=== PATIENT | female | born 1995 | race Caucasian/White ===

== ENCOUNTER 2018-01-17 21:39 | Emergency (ER) | payer OTHER ==
[2018-01-17 22:20] LABS: #Eosinphils 0.1 thou/uL (0.0-0.7); #Lymphocytes 1.8 thou/uL (1.20-3.40); #Monocytes 0.6 thou/uL (0.11-0.59); #Neutrophils 4.4 thou/uL (1.40-6.50); %Basophils 0.1 % (0.0-1.0); %Lymphocytes 26.2 % (21.0-51.0); %Neutrophils 63.8 % (42.0-75.0); Hemoglobin 11.9 g/dL (12.0-16.0); Mean Corpuscular HGB CONC 35.9 g/dL (32.0-36.0); Mean Corpuscular Hemoglobin 30.3 pg (27.0-31.0); Mean Corpuscular Volume 84.5 fL (78.0-98.0); Mean Platelet Volume 6.6 fL (7.4-10.4); Platelet Count 219 thou/uL (130-400); RBC Distribution Width 12.7 % (11.5-14.5); Red Blood Cell (RBC) Count 3.92 mill/uL (4.20-5.40); White Blood Cell (WBC) Count 6.9 thou/uL (4.8-10.8)
[2018-01-17 22:33] LABS: Pregnancy Test - Urine (BHCG) POSITIVE (Negative); Pregu Control Background? CLEAR/WHITE (CLR/WHITE); Pregu Control Bar Appear? YES (CONTROL BAR); Specific Gravity 1.016 (1.002-1.036)
[2018-01-17 22:40] LABS: Bilirubin Negative (Negative); Blood, Urine Negative (Negative); Clarity CLEAR (Clear); Glucose, Urine (Dipstick) Negative (Negative); Leukocyte Negative (Negative); Nitrite Negative (Negative); Protein, Urine (Dipstick) Negative (Neg-Trace); pH, Urine 6.5 (5.0-9.0)
[2018-01-17 22:42] LABS: Specific Gravity, Urine 1.016 (1.002-1.036)
[2018-01-17 22:44] LABS: ALT (SGPT) Less than 7 U/L (8-55); AST (SGOT) 12 U/L (5-34); Albumin 3.7 g/dL (3.5-5.0); Alkaline Phosphatase 43 U/L (40-150); Anion Gap 12 mmol/L (10-20); BUN (Urea Nitrogen) 4 mg/dL (7.0-18.7); Bilirubin, Total 0.5 mg/dL (0.2-1.2); Calc. Creatinine Clearance 0 mL/min (70-130); Calcium 8.8 mg/dL (7.8-10.44); Carbon Dioxide 22 mmol/L (22-29); Chloride 105 mmol/L (98-107); Estimated GFR-MDRD Greater than 90; Globulin 2.7 g/dL (2.4-3.5); Glucose 82 mg/dL (70-105); Magnesium 1.9 mg/dL (1.6-2.6); Protein, Total 6.4 g/dL (6.0-8.3); Sodium 135 mmol/L (136-145)
== END 2018-01-17 23:27 | disposition home or self-care (01) ==
LOC: ERS 21:39
DX: O99.89 Other specified diseases and conditions complicating pregnancy, childbirth and the puerperium (principal); R10.2 Pelvic and perineal pain; R10.31 Right lower quadrant pain; R10.32 Left lower quadrant pain; Z3A.16 16 weeks gestation of pregnancy
CPT/HCPCS: 36415; 80053; 81003; 81025; 83735; 84702; 85025; 86900; 86901; 87086; 99284

== ENCOUNTER 2018-06-22 05:32 | Inpatient (IN) | payer OTHER ==
[2018-06-22 06:08] VITALS: BMI 31.2
[2018-06-22] MEDS ORDERED: Promethazine HCl 25 MG/ML VIAL IM PRN (06:19)
[2018-06-22] MEDS ORDERED: Acetaminophen 500 MG TAB PO PRN (06:19)
[2018-06-22] MEDS ORDERED: Butorphanol Tartrate 1 MG/ML VIAL SLOW IVP PRN (06:19)
[2018-06-22] MEDS ORDERED: Ondansetron PF 4 MG/2 ML Vial IVP PRN ×2 (06:19→13:23)
[2018-06-22] MEDS ORDERED: Lactated Ringer's 1,000 ML IV SCH (06:19)
[2018-06-22] MEDS ORDERED: NS w/ Oxytocin 10 units 500 ML IV SCH ×2 (06:30)
[2018-06-22] MEDS ORDERED: NS / Oxytocin 40 units/1000ml 1,000 ML IV SCH ×2 (06:30→13:30)
[2018-06-22] MEDS ORDERED: NS w/ Oxytocin 10 units 500 ML IVPB SCH (06:30)
[2018-06-22] MEDS ORDERED: Ibuprofen 800 MG TAB PO PRN (06:30)
[2018-06-22] MEDS ORDERED: Methylergonovine 0.2 MG/ML VIAL IM PRN (06:30)
[2018-06-22] MEDS ORDERED: Misoprostol 200 MCG TAB RC PRN (06:30)
[2018-06-22] MEDS ORDERED: Carboprost 250 MCG/ML AMP IM PRN (06:30)
[2018-06-22] MEDS ORDERED: Lidocaine 1% (PF) 30 ML VIAL SC PRN (06:30)
[2018-06-22] MEDS ORDERED: HYDROcodone/Acetaminophen 5/325 mg Tablet PO PRN ×4 (06:30→13:23)
[2018-06-22 06:50] LABS: Hemoglobin 10.6 g/dL (12.0-16.0); Mean Corpuscular HGB CONC 32.9 g/dL (32.0-36.0); Mean Corpuscular Hemoglobin 26.6 pg (27.0-31.0); Mean Corpuscular Volume 81.1 fL (78.0-98.0); Mean Platelet Volume 7.9 fL (7.4-10.4); Platelet Count 207 thou/uL (130-400); RBC Distribution Width 14.8 % (11.5-14.5); Red Blood Cell (RBC) Count 3.98 mill/uL (4.20-5.40); White Blood Cell (WBC) Count 7.6 thou/uL (4.8-10.8)
[2018-06-22 07:22] LABS: HBSAg Index 0.16 S/CO (0-0.99); Hep B Surf Ag Non-Reactive S/CO (NonReactive)
[2018-06-22 07:25] LABS: Syphilis Antibody Nonreactive (Nonreactive); Syphilis Antibody Index 0.03 S/CO (<1.00 Non-Reactive)
[2018-06-22] MEDS ORDERED: Lidocaine 1% (PF) 30 ML VIAL ONE (10:58)
[2018-06-22] MEDS ORDERED: NS / Oxytocin 40 units/1000ml 1,000 ML ONE (10:58)
[2018-06-22] MEDS ORDERED: Bisacodyl 10 MG SUPP PR PRN (13:23)
[2018-06-22] MEDS ORDERED: Milk Of Magnesia 30 ML UDCUP PO PRN (13:23)
[2018-06-22] MEDS ORDERED: Benzocaine/Menthol 20-0.5% 60 ML CAN TOP PRN (13:23)
[2018-06-22] MEDS ORDERED: Lanolin Ointment 7 GM TUBE TOP PRN (13:23)
[2018-06-22] MEDS ORDERED: diphenhydrAMINE 25 MG CAP PO PRN (13:23)
[2018-06-22] MEDS ORDERED: Zolpidem Tartrate 5 MG TAB PO PRN (13:23)
[2018-06-22] MEDS: Ferrous Sulfate 325 MG TAB PO SCH (17:49)
[2018-06-22] MEDS: Ibuprofen 800 MG TAB PO SCH ×2 (21:37)
[2018-06-22] MEDS: Docusate Calcium (SURFAK) 240 MG CAP PO SCH (21:37)
[2018-06-23] MEDS: Ibuprofen 800 MG TAB PO SCH ×2 (06:09→13:25)
[2018-06-23] MEDS ORDERED: Prenatal Vitamin 1 TAB PO SCH (09:00)
[2018-06-23] MEDS ORDERED: Adacel (T-DAP) 0.5 ML SYRINGE IM ONE (09:00)
[2018-06-23] MEDS: Ferrous Sulfate 325 MG TAB PO SCH (09:08)
[2018-06-23] MEDS: Docusate Calcium (SURFAK) 240 MG CAP PO SCH (10:04)
[2018-06-23 11:49] VITALS: BP 112/55; TEMP 98.2
[2018-06-23] MEDS ORDERED: Measles/Mumps/Rubella 10 MCG/0.5 ML VIAL SC ONE (17:00)
--- NOTE | 2018-06-23 18:56 | OP ---
DATE OF PROCEDURE: 06/22/2018 PREOPERATIVE DIAGNOSES: 1. A 23-year-old female, G2, P1, at 39 weeks and 1 day with induction of labor for large for dates. 2. GBS negative. 3. Anemia of . POSTOPERATIVE DIAGNOSIS: 1. A 23-year-old female, G2, P1, at 39 weeks and 1 day with induction of labor for large for dates. 2. GBS negative. 3. Anemia of . 4. Live-born female weighing 9 pounds 7 ounces with Apgars of 9 and 9 at 1 and 5 minutes respectively. ANESTHESIA: None. CLINICAL HISTORY: This patient is a 23-year-old female who had uneventful OB care. Per her history, she had her first delivery approximately 3 years ago for an 8 pounds 9 ounces baby. The patient was counseled knowing that this baby was large for gestation for a delivery at 39 weeks. The risks, benefits, and possible complications were discussed and the patient agreed to the procedure. She had advanced cervical dilation and day before coming to her induction, her cervical exam was 3 cm, 60% effaced, and -3 station. On the day of admission, she was 4, 60, and -2. She was admitted and Pitocin was started through her IV after category 1 tracing was documented. She had an amniotomy performed for clear fluid and she continued to progress with the Pitocin. She did not request an epidural for maternal analgesia and was able to labor down to complete cervical dilation and +2 station. DETAILS OF PROCEDURE: With good maternal effort, the patient was able to push the vertex to the LEX position. The head was delivered and with the knees completely flexed towards the chest, the anterior shoulder was delivered followed by the posterior shoulder and then the remainder of the 's body. The cord was doubly clamped and cut and the infant cried spontaneously with a good vigorous cry. The father of the baby cut the cord and the was placed on the maternal abdomen where she was continually stimulated and dried off and placed skin to skin. The cord blood was obtained. The placenta was then delivered spontaneously intact with a 3-vessel cord. Exploration of the vagina, introitus, and cervix noted no lacerations. The patient had a firm uterus well below the umbilicus and was cleansed off all debris and recovered to the supine position. All needle, sponge, lap, and instrument counts were correct x2. At the end of the procedure, there were no other issues surrounding this delivery. Job ID: [id number]
== END 2018-06-23 16:05 | disposition home or self-care (01) | DRG 807 ==
LOC: L&D 05:32 → 3SW 15:33
PROVIDERS: ADMIT Obstetrics & Gynecology; ATTEND Obstetrics & Gynecology
PROC: 10E0XZZ Delivery of Products of Conception, External Approach (ICD-10-PCS; principal; 2018-06-22)
PROC: 3E033VJ Introduction of Other Hormone into Peripheral Vein, Percutaneous Approach (ICD-10-PCS; 2018-06-22)
PROC: 10907ZC Drainage of Amniotic Fluid, Therapeutic from Products of Conception, Via Natural or Artificial Opening (ICD-10-PCS; 2018-06-22)
DX: O36.63X0 Maternal care for excessive fetal growth, third trimester, not applicable or unspecified (principal); Z37.0 Single live birth; O99.02 Anemia complicating childbirth; D64.9 Anemia, unspecified; Z3A.39 39 weeks gestation of pregnancy
CPT/HCPCS: 85027; 86780; 86850; 86900; 86901; 87340; 90707; J2001

== ENCOUNTER 2020-03-30 10:21 | Outpatient (CLI) | payer OTHER ==
[2020-03-31 14:48] LABS: SARS-CoV-2 MS2 Positive; SARS-CoV-2 N Gene Negative; SARS-CoV-2 S Gene Negative; SARS-CoV-2 by NAA Not Detected (NotDetected); SARS-CoV-2 orf1ab Negative
== END 2020-03-30 10:22 | disposition home or self-care (01) ==
LOC: LABSCS 10:21
PROVIDERS: ATTEND Obstetrics & Gynecology
DX: Z20.828 Contact with and (suspected) exposure to other viral communicable diseases (principal)
CPT/HCPCS: 87635; U0003

== ENCOUNTER 2020-04-02 05:30 | Inpatient (IN) | payer OTHER ==
--- NOTE | 2020-04-02 00:38 | PDOC.LDHP ---
Labor and Delivery H&P Chief complaint: scheduled induction HPI: 24 y/o at 39 and 3/7 weeks for term induction of labor. Due date: 04/07/20 Grav: 3 Para: 2 Abnormal US findings: No Current medications: pre-fahad vitamins Allergies/Adverse Reactions: Allergies Allergy/AdvReac Type Severity Reaction Status Date / Time No Known Allergies Allergy Verified 09/30/19 20:56 Social history: none - Physical Exam Vital signs reviewed and normal: yes General: NAD, resting Heart: RRR Lungs: CTAB Abdomen: gravid Extremeties: no edema FHT: category 1 - Assessment L&D Assessment: elective induction at term - Plan Plan: admit to L&D, cervical ripening
[~2020-04-02 05:30] MED LIST: Acetaminophen 500 MG TAB PO PRN; Butorphanol Tartrate 1 MG/ML VIAL SLOW IVP PRN; Carboprost 250 MCG/ML AMP IM PRN; Diphenoxylate HCl/Atropine Tablet PO PRN; Docusate 100 MG CAP PO PRN; HYDROcodone/Acetaminophen 5/325 mg Tablet PO PRN; Ibuprofen 800 MG TAB PO PRN; Lidocaine 1% (PF) 30 ML VIAL SC PRN; Methylergonovine 0.2 MG/ML VIAL IM PRN; Misoprostol 200 MCG TAB PR PRN; NS / Oxytocin 40 units/1000ml 1,000 ML IV PRN; NS w/ Oxytocin 10 units 500 ML IV SCH; Ondansetron PF 4 MG/2 ML Vial IVP PRN; Promethazine HCl 25 MG/ML VIAL IM PRN; hydrALAZINE 20 MG/ML VIAL SLOW IVP PRN
[2020-04-02 06:46] VITALS: BMI 31.4
[2020-04-02] MEDS: Lactated Ringer's 1,000 ML IV SCH ×2 (07:10→18:54)
[2020-04-02 07:31] LABS: Hemoglobin 9.7 g/dL (12.0-16.0); Mean Corpuscular HGB CONC 32.1 g/dL (32.0-36.0); Mean Corpuscular Hemoglobin 23.7 pg (27.0-31.0); Mean Corpuscular Volume 73.9 fL (78.0-98.0); Mean Platelet Volume 7.9 fL (7.4-10.4); Platelet Count 277 thou/uL (130-400); RBC Distribution Width 14.8 % (11.5-14.5); White Blood Cell (WBC) Count 8.9 thou/uL (4.8-10.8)
[2020-04-02 08:11] LABS: Syphilis Antibody Nonreactive (Nonreactive); Syphilis Antibody Index 0.02 S/CO (<1.00 Non-Reactive)
[2020-04-02 08:12] LABS: HBSAg Index 0.11 S/CO (0-0.99); Hep B Surf Ag Non-Reactive S/CO (NonReactive)
[2020-04-02] MEDS ORDERED: Lidocaine 1% (PF) 30 ML VIAL ONE (08:55)
[2020-04-02] MEDS ORDERED: NS / Oxytocin 40 units/1000ml 1,000 ML ONE (08:55)
[2020-04-02] MEDS ORDERED: Misoprostol 200 MCG TAB VAG PRN (20:41)
[2020-04-02] MEDS ORDERED: diphenhydrAMINE 25 MG CAP PO PRN (20:41)
[2020-04-02] MEDS ORDERED: Promethazine HCl 25 MG/ML VIAL IM PRN (20:41)
[2020-04-02] MEDS ORDERED: Benzocaine-Menthol 82.5 ML CAN TOP PRN (20:41)
[2020-04-02] MEDS ORDERED: Lanolin Ointment 7 GM TUBE TOP PRN (20:41)
[2020-04-02] MEDS ORDERED: Zolpidem Tartrate 5 MG TAB PO PRN (20:41)
[2020-04-02] MEDS ORDERED: Preparation H Ointment 28 GM TUBE PR PRN (20:41)
[2020-04-02] MEDS ORDERED: hydrALAZINE 20 MG/ML VIAL SLOW IVP PRN (20:41)
[2020-04-02] MEDS ORDERED: Bisacodyl 10 MG SUPP PR PRN (20:41)
[2020-04-02] MEDS ORDERED: NS / Oxytocin 40 units/1000ml 1,000 ML IV SCH (20:41)
[2020-04-02] MEDS ORDERED: HYDROcodone/Acetaminophen 5/325 mg Tablet PO PRN ×2 (20:41)
[2020-04-02] MEDS ORDERED: Methylergonovine 0.2 MG/ML VIAL IM PRN (20:41)
[2020-04-02] MEDS ORDERED: Ondansetron PF 4 MG/2 ML Vial IVP PRN (20:41)
[2020-04-02] MEDS ORDERED: Milk Of Magnesia 30 ML UDCUP PO PRN (20:41)
[2020-04-02] MEDS: Docusate Calcium (SURFAK) 240 MG CAP PO SCH (22:40)
[2020-04-03] MEDS: Ibuprofen 800 MG TAB PO SCH ×3 (00:58→13:50)
[2020-04-03 06:02] LABS: Hemoglobin 9.4 g/dL (12.0-16.0); Mean Corpuscular HGB CONC 32.5 g/dL (32.0-36.0); Mean Corpuscular Hemoglobin 24.2 pg (27.0-31.0); Mean Corpuscular Volume 74.4 fL (78.0-98.0); Mean Platelet Volume 8.3 fL (7.4-10.4); Platelet Count 254 thou/uL (130-400); RBC Distribution Width 14.8 % (11.5-14.5); Red Blood Cell (RBC) Count 3.87 mill/uL (4.20-5.40); White Blood Cell (WBC) Count 10.1 thou/uL (4.8-10.8)
[2020-04-03] MEDS ORDERED: Varicella virus, LIVE 0.5 ML VIAL SC ONE (09:00)
[2020-04-03] MEDS ORDERED: Measles/Mumps/Rubella 10 MCG/0.5 ML VIAL SC ONE (09:00)
[2020-04-03] MEDS ORDERED: Adacel (T-DAP) 0.5 ML SYRINGE IM ONE (09:00)
[2020-04-03] MEDS ORDERED: Prenatal Vitamin 1 TAB PO SCH (09:00)
[2020-04-03] MEDS: Docusate Calcium (SURFAK) 240 MG CAP PO SCH (10:42)
[2020-04-03] MEDS: Ferrous Sulfate 325 MG TAB PO SCH ×2 (10:42→16:27)
[2020-04-03 16:52] VITALS: BP 105/59; TEMP 98.1
--- NOTE | 2020-04-04 04:03 | DN ---
DATE OF PROCEDURE: 04/02/2020 TIME: 1815 hours central daylight savings time. PREOPERATIVE DIAGNOSIS: Intrauterine at 39 weeks and 2 days with a term elective induction of labor. POSTOPERATIVE DIAGNOSIS: Intrauterine at 39 weeks and 2 days with a term elective induction of labor. PROCEDURE PERFORMED: Spontaneous vaginal delivery over intact perineum. FINDINGS: Viable female weighing 3850 g or 8 pounds 8 ounces. Apgars 8 and 9. ESTIMATED BLOOD LOSS: 150 mL. COMPLICATIONS: None. DESCRIPTION OF PROCEDURE: The patient presented to [facility] where she was admitted to the labor and delivery service. The patient underwent a normal and uneventful labor with normal cervical dilatation until she was found to be completely dilated. She was then allowed to push and was able to bring the baby down and delivered the baby in a vertex presentation without difficulties. Once the head delivered in occiput anterior position, the shoulders followed spontaneously along with the rest of the baby's body. Once out the baby's mouth and nose were bulb suctioned. The cord was clamped and cut and baby was handed to waiting attendants. Cord blood was collected. Gentle fundal massage was performed and the placenta delivered intact without problems. Hemostasis was assured. Quantitative blood loss was calculated. Inspection of the cervix, vaginal vault, and perineum did not reveal any lacerations needing suturing. Once again, hemostasis was within normal limits and the patient was allowed to recover in the labor and delivery room. Baby went to nursery. Job ID: [id number]
== END 2020-04-03 20:30 | disposition home or self-care (01) | DRG 807 ==
LOC: L&D 06:10 → 3SW 22:09
PROVIDERS: ADMIT Obstetrics & Gynecology; ATTEND Obstetrics & Gynecology
PROC: 10E0XZZ Delivery of Products of Conception, External Approach (ICD-10-PCS; principal; 2020-04-02)
PROC: 10907ZC Drainage of Amniotic Fluid, Therapeutic from Products of Conception, Via Natural or Artificial Opening (ICD-10-PCS; 2020-04-02)
PROC: 3E0P7VZ Introduction of Hormone into Female Reproductive, Via Natural or Artificial Opening (ICD-10-PCS; 2020-04-02)
PROC: 3E033VJ Introduction of Other Hormone into Peripheral Vein, Percutaneous Approach (ICD-10-PCS; 2020-04-02)
DX: O80 Encounter for full-term uncomplicated delivery (principal); Z37.0 Single live birth; Z3A.39 39 weeks gestation of pregnancy; Z11.59 Encounter for screening for other viral diseases
CPT/HCPCS: 36415; 85027; 86780; 86850; 86900; 86901; 87340; 87635; J2001; J2590; U0003

== ENCOUNTER 2020-11-25 16:24 | Emergency (ER) | payer OTHER | END 2020-11-25 19:16 | disposition home or self-care (01) | LOC: ERS 16:24 | DX: S92.351A Displaced fracture of fifth metatarsal bone, right foot, initial encounter for closed fracture (principal); W19.XXXA Unspecified fall, initial encounter | CPT/HCPCS: 29515 ==